=== PATIENT | female | born 1960 | race Caucasian/White ===

== ENCOUNTER 2018-04-03 12:40 | Inpatient (IN) | payer OTHER ==
[2018-04-03 15:04] VITALS: BMI 22.3
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
[2018-04-03] MEDS ORDERED: chlordiazePOXIDE HCL 25 MG CAPSULE PO PRN (15:50)
[2018-04-03] MEDS ORDERED: guaiFENesin/D-METHORPHAN HB 10 ML UNIT-DOSE CUPS PO PRN (15:50)
[2018-04-03] MEDS ORDERED: P-EPHED 60MG/TRIPROLIDI 2.5MG TABLET PO PRN (15:50)
[2018-04-03] MEDS ORDERED: MAG HYDROX/AL HYDROX/SIMETH 30 ML UNIT-DOSE CUP PO PRN (15:50)
[2018-04-03] MEDS ORDERED: MENTHOL/PHENOL 1 EACH UD MM PRN (15:50)
[2018-04-03] MEDS ORDERED: MAGNESIUM HYDROX 2400MG/30ML ORAL SUSPENSION 30 ML CUP PO PRN (15:50)
[2018-04-03] MEDS ORDERED: MAGNESIUM CITRATE 300 ML BOTTLE PO PRN (15:50)
[2018-04-03] MEDS: chlordiazePOXIDE HCL 25 MG CAPSULE PO SCH ×2 (19:00→22:20)
[2018-04-03] MEDS: ALBUTEROL SO4 8 GM HFA INHALER IH PRN (19:53)
[2018-04-03] MEDS: LOPERAMIDE HCL 2 MG CAPSULE PO PRN (19:54)
[2018-04-03] MEDS: THIAMINE HCL 100 MG TABLET (FP) PO SCH (22:20)
[2018-04-03] MEDS: MELATONIN 5 MG TABLETS PO PRN (22:21)
[2018-04-03] MEDS: ACETAMINOPHEN 325 MG TABLET (FP) PO PRN (22:23)
[2018-04-04] MEDS: IBUPROFEN 400 MG TABLET (FP) PO PRN ×3 (00:08→21:59)
[2018-04-04] MEDS: chlordiazePOXIDE HCL 25 MG CAPSULE PO SCH ×4 (05:37→22:00)
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
[2018-04-04] MEDS: RANITIDINE HCL 150 MG TABLET (FP) PO SCH (10:21)
[2018-04-04] MEDS: PRENATAL VITAMINS W/ FOLIC ACID TABLET (FP) PO SCH (10:21)
[2018-04-04] MEDS: amLODIPine BESYLATE 2.5 MG TABLET (FP) PO SCH (10:21)
[2018-04-04] MEDS: GABAPENTIN 300 MG CAPSULE (FP) PO SCH ×2 (10:22→21:59)
[2018-04-04] MEDS: SERTRALINE HCL 50 MG TABLET (FP) PO SCH (10:25)
[2018-04-04] MEDS: LOPERAMIDE HCL 2 MG CAPSULE PO PRN (10:34)
[2018-04-04 10:46] LABS: ALBUMIN 4.1 g/dl (3.4-5.0); ALK PHOS 83 U/L (45-117); ANION GAP 8 MMOL/L (8-16); BLOOD UREA NITROGEN 16 mg/dL (7-18); CALCIUM 9.2 mg/dL (8.5-10.1); CHLORIDE 105 mmol/L (98-107); CO2 29 mmol/L (21-32); CREATININE 0.7 mg/dL (0.55-1.3); GLUCOSE,RANDOM 118 mg/dL (74-106); POTASSIUM 3.4 mmol/L (3.5-5.1); SGOT/AST 41 U/L (15-37); SGPT/ALT 48 U/L (13-61); SODIUM 142 mmol/L (136-145); TOT PROT 7.9 g/dl (6.4-8.2)
[2018-04-04 10:47] LABS: HEMATOCRIT 38.8 % (32.4-45.2); HEMOGLOBIN 13.7 GM/dL (10.7-15.3); MCH 35.1 pg (25.7-33.7); MCHC 35.2 g/dl (32.0-36.0); MEAN CELL VOLUME 99.7 fl (80-96); MEAN PLT VOLUME 8.9 fl (7.5-11.1); PLATELET COUNT 181 K/MM3 (134-434); RBC 3.89 M/mm3 (3.60-5.2); WHITE BLOOD COUNT 5.5 K/mm3 (4.0-10.0)
[2018-04-04] MEDS: busPIRone HCL 5 MG TABLET PO SCH ×2 (10:55→21:59)
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
[2018-04-04] MEDS: hydrOXYzine PAMOATE 50 MG CAPSULE (FP) PO PRN ×2 (14:32→21:59)
[2018-04-04] MEDS ORDERED: SIMETHICONE 80 MG TAB.CHEW (FP) PO PRN (15:40)
[2018-04-04] MEDS: POTASSIUM CHLORIDE TABS 20 MEQ TABLET.ER (FP) PO SCH (17:06)
[2018-04-04] MEDS: ACETAMINOPHEN 325 MG TABLET (FP) PO PRN (19:31)
[2018-04-04] MEDS: ALBUTEROL SO4 8 GM HFA INHALER IH PRN (21:45)
[2018-04-04] MEDS: THIAMINE HCL 100 MG TABLET (FP) PO SCH (21:59)
[2018-04-04] MEDS: MELATONIN 5 MG TABLETS PO PRN (22:00)
[2018-04-04] MEDS: QUEtiapine FUMARATE 50 MG TABLET PO SCH (22:39)
[2018-04-05] MEDS: chlordiazePOXIDE HCL 25 MG CAPSULE PO SCH ×2 (05:30→10:45)
[2018-04-05] MEDS: RANITIDINE HCL 150 MG TABLET (FP) PO SCH (10:46)
[2018-04-05] MEDS: PRENATAL VITAMINS W/ FOLIC ACID TABLET (FP) PO SCH (10:46)
[2018-04-05] MEDS: SERTRALINE HCL 50 MG TABLET (FP) PO SCH (10:46)
[2018-04-05] MEDS: GABAPENTIN 300 MG CAPSULE (FP) PO SCH ×2 (10:46→22:48)
[2018-04-05] MEDS: POTASSIUM CHLORIDE TABS 20 MEQ TABLET.ER (FP) PO SCH (10:46)
[2018-04-05] MEDS: amLODIPine BESYLATE 2.5 MG TABLET (FP) PO SCH (10:46)
[2018-04-05] MEDS: busPIRone HCL 5 MG TABLET PO SCH ×2 (12:11→22:49)
[2018-04-05] MEDS: IBUPROFEN 400 MG TABLET (FP) PO PRN ×2 (13:24→20:19)
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
[2018-04-05] MEDS: chlordiazePOXIDE 5 MG CAPSULE PO SCH ×2 (17:14→22:48)
[2018-04-05] MEDS: QUEtiapine FUMARATE 50 MG TABLET PO SCH (22:48)
[2018-04-05] MEDS: THIAMINE HCL 100 MG TABLET (FP) PO SCH (22:49)
[2018-04-06] MEDS: chlordiazePOXIDE 5 MG CAPSULE PO SCH ×2 (05:17→10:23)
[2018-04-06] MEDS: IBUPROFEN 400 MG TABLET (FP) PO PRN ×2 (07:37→13:53)
[2018-04-06] MEDS: RANITIDINE HCL 150 MG TABLET (FP) PO SCH (10:23)
[2018-04-06] MEDS: amLODIPine BESYLATE 2.5 MG TABLET (FP) PO SCH (10:24)
[2018-04-06] MEDS: GABAPENTIN 300 MG CAPSULE (FP) PO SCH ×2 (10:24→22:11)
[2018-04-06] MEDS: busPIRone HCL 5 MG TABLET PO SCH ×2 (10:24→22:11)
[2018-04-06] MEDS: POTASSIUM CHLORIDE TABS 20 MEQ TABLET.ER (FP) PO SCH (10:24)
[2018-04-06] MEDS: PRENATAL VITAMINS W/ FOLIC ACID TABLET (FP) PO SCH (10:24)
[2018-04-06] MEDS: SERTRALINE HCL 50 MG TABLET (FP) PO SCH (10:25)
[2018-04-06] MEDS: chlordiazePOXIDE HCL 10 MG CAPSULE PO SCH ×2 (17:18→22:11)
--- NOTE | 2018-04-06 17:53 | PN ---
[facility] Progress Note (SOAP) Subjective: Sweating, chills, body aches. Patient requesting Rehab here at [facility]. Objective: 04/06/18 17:50 Last Vital Signs Temp Pulse Resp BP Pulse Ox 99.0 F 77 16 135/91 04/06/18 17:41 04/06/18 17:41 04/06/18 17:41 04/06/18 17:41 Laboratory Tests 04/04/18 04/04/18 04/04/18 07:00 07:00 07:00 WBC 5.5 RBC 3.89 Hgb 13.7 Hct 38.8 MCV 99.7 H MCH 35.1 H MCHC 35.2 RDW 13.0 Plt Count 181 MPV 8.9 Sodium 142 Potassium 3.4 L Chloride 105 Carbon Dioxide 29 Anion Gap 8 BUN 16 Creatinine 0.7 Creat Clearance w eGFR > 60 Random Glucose 118 H Calcium 9.2 Total Bilirubin 1.0 AST 41 H ALT 48 Alkaline Phosphatase 83 Total Protein 7.9 Albumin 4.1 RPR Titer Nonreactive HIV 1&2 Antibody Screen HIV P24 Antigen 04/04/18 07:00 WBC RBC Hgb Hct MCV MCH MCHC RDW Plt Count MPV Sodium Potassium Chloride Carbon Dioxide Anion Gap BUN Creatinine Creat Clearance w eGFR Random Glucose Calcium Total Bilirubin AST ALT Alkaline Phosphatase Total Protein Albumin RPR Titer HIV 1&2 Antibody Screen Negative HIV P24 Antigen Negative Labs reviewed: Karri 3.4 Assessment: 04/06/18 17:51 Withdrawal symptoms Mild hypokalemia noted Plan: Continue detox Encouraged PO water hydration Hypokalemia, mild: replenished
[2018-04-06] MEDS: MELATONIN 5 MG TABLETS PO PRN (22:11)
[2018-04-06] MEDS: THIAMINE HCL 100 MG TABLET (FP) PO SCH (22:11)
[2018-04-06] MEDS: QUEtiapine FUMARATE 50 MG TABLET PO SCH (22:11)
[2018-04-07] MEDS: chlordiazePOXIDE HCL 10 MG CAPSULE PO SCH ×2 (05:12→10:16)
[2018-04-07 09:32] VITALS: BP 115/73; PULSE 77; TEMP 97.5
[2018-04-07] MEDS: IBUPROFEN 400 MG TABLET (FP) PO PRN (09:39)
[2018-04-07] MEDS: amLODIPine BESYLATE 2.5 MG TABLET (FP) PO SCH (09:39)
[2018-04-07] MEDS: busPIRone HCL 5 MG TABLET PO SCH (09:39)
[2018-04-07] MEDS: PRENATAL VITAMINS W/ FOLIC ACID TABLET (FP) PO SCH (09:39)
--- NOTE | 2018-04-07 09:46 | DS ---
[facility] Detox Discharge Summary Admission Date: 04/03/18 Discharge Date: 04/07/18 - History Present History: Alcohol Dependence, Opioid Dependence - Physical Exam Results Vital Signs: Vital Signs Temperature 97.5 F L 04/07/18 09:32 Pulse Rate 77 04/07/18 09:32 Respiratory Rate 18 04/07/18 09:32 Blood Pressure 115/73 04/07/18 09:32 O2 Sat by Pulse Oximetry (%) - Treatment Hospital Course: Detox Protocol Followed, Detoxed Safely, Responded well, Discharged Condition Good, Rehab Referral Accepted - Medication Discharge Medications: Ambulatory Orders Albuterol Sulfate Inhaler - [Ventolin Hfa Inhaler -] 2 inh PO Q4H PRN 04/03/18 Amlodipine Besylate [Norvasc -] 2.5 mg PO DAILY 04/03/18 Gabapentin [Neurontin -] 300 mg PO HS 04/03/18 Quetiapine Fumarate [Seroquel -] 50 - 100 mg PO HS 04/03/18 Ranitidine HCl 150 mg PO BID 04/03/18 Sertraline HCl [Zoloft] 100 mg PO DAILY 04/03/18 - Diagnosis (1) Alcohol intoxication Current Visit: Yes Status: Acute Qualifiers: Complication of substance-induced condition: uncomplicated Qualified Code(s ): F10.920 - Alcohol use, unspecified with intoxication, uncomplicated (2) Hypokalemia Current Visit: Yes Status: Acute (3) Alcohol dependence Current Visit: Yes Status: Chronic Qualifiers: Substance use status: uncomplicated Qualified Code(s): F10.20 - Alcohol dependence, uncomplicated (4) Asthma Current Visit: Yes Status: Chronic Qualifiers: Asthma severity: mild Asthma persistence: unspecified Asthma complication type: unspecified Qualified Code(s): J45.909 - Unspecified asthma , uncomplicated (5) Cocaine dependence Current Visit: Yes Status: Chronic Qualifiers: Substance use status: uncomplicated Qualified Code(s): F14.20 - Cocaine dependence, uncomplicated (6) Hypertension Current Visit: Yes Status: Chronic Qualifiers: Hypertension type: essential hypertension Qualified Code(s): I10 - Essential (primary) hypertension (7) Nicotine dependence in remission Current Visit: Yes Status: Chronic Qualifiers: Nicotine product type: cigarettes Qualified Code(s): F17.211 - Nicotine dependence, cigarettes, in remission (8) Opiate dependence Current Visit: Yes Status: Chronic Qualifiers: Substance use status: in remission Qualified Code(s): F11.21 - Opioid dependence, in remission (9) Substance induced mood disorder Current Visit: Yes Status: Chronic - AMA Did Patient Leave Against Medical Advice: No (referred to [facility])
[2018-04-07] MEDS: RANITIDINE HCL 150 MG TABLET (FP) PO SCH (10:16)
[2018-04-07] MEDS: POTASSIUM CHLORIDE TABS 20 MEQ TABLET.ER (FP) PO SCH (10:16)
[2018-04-07] MEDS: GABAPENTIN 300 MG CAPSULE (FP) PO SCH (10:16)
[2018-04-07] MEDS: SERTRALINE HCL 50 MG TABLET (FP) PO SCH (10:17)
== END 2018-04-07 12:29 | disposition other institution (70) | DRG 773 ==
LOC: YASAS 12:40 → Y6N 17:24
PROVIDERS: ADMIT Neuromusculoskeletal Medicine & OMM; ATTEND Neuromusculoskeletal Medicine & OMM
PROC: HZ2ZZZZ Detoxification Services for Substance Abuse Treatment (ICD-10-PCS; principal; 2018-04-03)
DX: F10.230 Alcohol dependence with withdrawal, uncomplicated (principal); F14.20 Cocaine dependence, uncomplicated; F11.20 Opioid dependence, uncomplicated; F17.210 Nicotine dependence, cigarettes, uncomplicated; I10 Essential (primary) hypertension; J45.909 Unspecified asthma, uncomplicated; E87.6 Hypokalemia
CPT/HCPCS: 36415; 73060-TC-LT-FY; 73060-TC-RT-FY; 73110-TC-LR-FY; 73110-TC-RT-FY; 73130-TC-LT-FY; 73130-TC-RT-FY; 80053; 85027; 86593; 87389

== ENCOUNTER 2018-04-07 12:50 | Inpatient (IN) | payer OTHER ==
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
[2018-04-07] MEDS ORDERED: LOPERAMIDE HCL 2 MG CAPSULE PO PRN (15:18)
[2018-04-07] MEDS ORDERED: ACETAMINOPHEN 325 MG TABLET (FP) PO PRN (15:18)
[2018-04-07] MEDS ORDERED: P-EPHED 60MG/TRIPROLIDI 2.5MG TABLET PO PRN (15:18)
[2018-04-07] MEDS ORDERED: MENTHOL/PHENOL 1 EACH UD MM PRN (15:18)
[2018-04-07] MEDS ORDERED: MAGNESIUM CITRATE 300 ML BOTTLE PO PRN (15:18)
[2018-04-07] MEDS ORDERED: MAGNESIUM HYDROX 2400MG/30ML ORAL SUSPENSION 30 ML CUP PO PRN (15:18)
[2018-04-07] MEDS ORDERED: NICOTINE POLACRILEX 4 MG GUM BUC PRN (15:18)
[2018-04-07] MEDS ORDERED: guaiFENesin/D-METHORPHAN HB 10 ML UNIT-DOSE CUPS PO PRN (15:18)
--- NOTE | 2018-04-07 15:18 | HP ---
[facility] Rehab Assess/Revision - Admission History Admitted to Rehab from: [facility] - Vital signs Vital Signs: Vital Signs Period Temp Pulse Resp BP Sys/Pagan Pulse Ox Last 24 Hr 97.7 F 83 18 119/78 - Findings Detox History & Physical reviewed: Yes Concur with findings: Yes Inpatient Rehab Admission - Initial Determination Are CD services needed?: Yes - Rehab Admission Criteria Poor recovery environment: Yes Comorbidities: Yes Patient is meeting Inpatient Rehab admission criteria:: Yes
[2018-04-07] MEDS: IBUPROFEN 400 MG TABLET (FP) PO PRN (18:14)
[2018-04-07] MEDS: hydrOXYzine PAMOATE 50 MG CAPSULE (FP) PO PRN (21:06)
[2018-04-07] MEDS: THIAMINE HCL 100 MG TABLET (FP) PO SCH (21:06)
[2018-04-07] MEDS: GABAPENTIN 300 MG CAPSULE (FP) PO SCH (21:08)
[2018-04-07] MEDS: traZODone HCL 100 MG TABLET (FP) PO SCH (21:08)
[2018-04-07] MEDS: MELATONIN 5 MG TABLETS PO PRN (23:48)
[2018-04-08] MEDS: SERTRALINE HCL 50 MG TABLET (FP) PO SCH (09:18)
[2018-04-08] MEDS: GABAPENTIN 300 MG CAPSULE (FP) PO SCH ×2 (09:18→21:27)
[2018-04-08] MEDS: PRENATAL VITAMINS W/ FOLIC ACID TABLET (FP) PO SCH (09:18)
[2018-04-08] MEDS: NICOTINE 21 MG/24 HOURS TOPICAL PATCH TD SCH (09:19)
[2018-04-08] MEDS ORDERED: PT OWN MED DRAWER 7, Y5N ONE (10:19)
[2018-04-08] MEDS ORDERED: PNEUMOC 13-VAL CONJ-DIP CRM/PF 0.5 ML DISP.SYRIN IM ONE (12:00)
[2018-04-08] MEDS ORDERED: PNEUMOCOCCAL 23 VACCINE 0.5 ML VIAL IM ONE (12:00)
[2018-04-08] MEDS: IBUPROFEN 400 MG TABLET (FP) PO PRN (16:44)
[2018-04-08] MEDS: hydrOXYzine PAMOATE 50 MG CAPSULE (FP) PO PRN (21:27)
[2018-04-08] MEDS: MELATONIN 5 MG TABLETS PO PRN (21:27)
[2018-04-08] MEDS: traZODone HCL 100 MG TABLET (FP) PO SCH (21:27)
[2018-04-08] MEDS: THIAMINE HCL 100 MG TABLET (FP) PO SCH (21:27)
[2018-04-08 23:52] LABS: URINE APPEARANCE SLCLOUDY; URINE BILIRUBIN NEGATIVE (<2.0 mg/dL); URINE COLOR LTYELLOW; URINE GLUCOSE (UA) NEGATIVE (NEGATIVE); URINE KETONE NEGATIVE (NEGATIVE); URINE LEUK ESTERASE TRACE (NEGATIVE); URINE NITRITE NEGATIVE (NEGATIVE); URINE PROTEIN NEGATIVE (NEGATIVE); URINE UROBILINOGEN NEGATIVE mg/dL (0.2-1.0)
[2018-04-09 00:33] LABS: EPI CELLS RARE /HPF (FEW)
[2018-04-09] MEDS ORDERED: COLLOIDAL OATMEAL 1 BAR EACH TP PRN (09:45)
[2018-04-09] MEDS: IBUPROFEN 400 MG TABLET (FP) PO PRN ×2 (09:50→21:20)
[2018-04-09] MEDS: GABAPENTIN 300 MG CAPSULE (FP) PO SCH ×2 (09:51→21:18)
[2018-04-09] MEDS: SERTRALINE HCL 50 MG TABLET (FP) PO SCH (09:51)
[2018-04-09] MEDS: PRENATAL VITAMINS W/ FOLIC ACID TABLET (FP) PO SCH (09:51)
[2018-04-09] MEDS: MAG HYDROX/AL HYDROX/SIMETH 30 ML UNIT-DOSE CUP PO PRN ×2 (09:56→19:56)
[2018-04-09] MEDS: NICOTINE 21 MG/24 HOURS TOPICAL PATCH TD SCH (10:05)
[2018-04-09] MEDS: BACITRACIN 0.9 GM PACKET TP SCH ×2 (11:00→21:20)
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
[2018-04-09] MEDS: hydrOXYzine PAMOATE 50 MG CAPSULE (FP) PO PRN (21:18)
[2018-04-09] MEDS: traZODone HCL 100 MG TABLET (FP) PO SCH (21:18)
[2018-04-09] MEDS: THIAMINE HCL 100 MG TABLET (FP) PO SCH (21:18)
[2018-04-10] MEDS: MELATONIN 5 MG TABLETS PO PRN ×2 (00:38→21:24)
[2018-04-10] MEDS: BACITRACIN 0.9 GM PACKET TP SCH ×2 (09:46→21:25)
[2018-04-10] MEDS: GABAPENTIN 300 MG CAPSULE (FP) PO SCH ×2 (09:47→21:24)
[2018-04-10] MEDS: NICOTINE 21 MG/24 HOURS TOPICAL PATCH TD SCH (09:47)
[2018-04-10] MEDS: SERTRALINE HCL 50 MG TABLET (FP) PO SCH (09:47)
[2018-04-10] MEDS: PRENATAL VITAMINS W/ FOLIC ACID TABLET (FP) PO SCH (09:47)
[2018-04-10] MEDS: MAG HYDROX/AL HYDROX/SIMETH 30 ML UNIT-DOSE CUP PO PRN (10:50)
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
[2018-04-10] MEDS: BISMUTH SUBSALICYLATE 262 MG/15 ML BTL PO SCH (15:36)
[2018-04-10] MEDS: traZODone HCL 100 MG TABLET (FP) PO SCH (21:24)
[2018-04-10] MEDS: THIAMINE HCL 100 MG TABLET (FP) PO SCH (21:24)
[2018-04-10] MEDS: hydrOXYzine PAMOATE 50 MG CAPSULE (FP) PO PRN (21:24)
[2018-04-10] MEDS ORDERED: PT OWN MED DRAWER 7, Y5N ONE (21:55)
[2018-04-11] MEDS: BACITRACIN 0.9 GM PACKET TP SCH ×3 (10:18→21:24)
[2018-04-11] MEDS: GABAPENTIN 300 MG CAPSULE (FP) PO SCH ×2 (10:18→21:20)
[2018-04-11] MEDS: SERTRALINE HCL 50 MG TABLET (FP) PO SCH (10:18)
[2018-04-11] MEDS: PRENATAL VITAMINS W/ FOLIC ACID TABLET (FP) PO SCH (10:18)
[2018-04-11] MEDS: BISMUTH SUBSALICYLATE 262 MG/15 ML BTL PO SCH (10:20)
--- NOTE | 2018-04-11 12:41 | PN ---
S Progress Note Note: PATIENT'S SCALP INSPECTED BY ARCHITECTURAL INSPECTOR WITH COMB TO ASSESS FOR ANY OTHER J CARLOS. NO J CARLOS NOTED ON SCALP. SCALP REMAINS INTACT, NO REDNESS OR SWELLING NOTED. PATIENT DENIES ANY PAIN TO SCALP AREA/HEAD. WILL CONTINUE TO MONITOR CLINICALLY. Vital Signs Temperature 97.8 F 04/11/18 07:45 Pulse Rate 74 04/11/18 07:45 Respiratory Rate 16 04/11/18 07:45 Blood Pressure 135/92 04/11/18 07:45 O2 Sat by Pulse Oximetry (%)
[2018-04-11] MEDS: THIAMINE HCL 100 MG TABLET (FP) PO SCH (21:20)
[2018-04-11] MEDS: traZODone HCL 100 MG TABLET (FP) PO SCH (21:20)
[2018-04-11] MEDS: IBUPROFEN 400 MG TABLET (FP) PO PRN (21:23)
[2018-04-12] MEDS: PRENATAL VITAMINS W/ FOLIC ACID TABLET (FP) PO SCH (10:17)
[2018-04-12] MEDS: GABAPENTIN 300 MG CAPSULE (FP) PO SCH ×2 (10:17→21:57)
[2018-04-12] MEDS: SERTRALINE HCL 50 MG TABLET (FP) PO SCH (10:17)
[2018-04-12] MEDS: BACITRACIN 0.9 GM PACKET TP SCH ×3 (10:17→21:45)
[2018-04-12] MEDS: BISMUTH SUBSALICYLATE 262 MG/15 ML BTL PO SCH (10:19)
[2018-04-12] MEDS ORDERED: PT OWN MED DRAWER 7, Y5N ONE (10:20)
--- NOTE | 2018-04-12 13:44 | PN ---
[facility] Progress Note Note: itching both feet tinea pedis treatment tinactin cream 1% bid
[2018-04-12] MEDS: TOLNAFTATE 1% CREAM 15 GM TUBE TP SCH ×2 (14:55→21:57)
[2018-04-12] MEDS: THIAMINE HCL 100 MG TABLET (FP) PO SCH (21:56)
[2018-04-12] MEDS: traZODone HCL 100 MG TABLET (FP) PO SCH (21:56)
[2018-04-12] MEDS: hydrOXYzine PAMOATE 50 MG CAPSULE (FP) PO PRN (21:57)
[2018-04-12] MEDS: MELATONIN 5 MG TABLETS PO PRN (23:37)
[2018-04-13] MEDS: BISMUTH SUBSALICYLATE 262 MG/15 ML BTL PO SCH (09:59)
[2018-04-13] MEDS: TOLNAFTATE 1% CREAM 15 GM TUBE TP SCH ×2 (10:00→21:51)
[2018-04-13] MEDS: SERTRALINE HCL 50 MG TABLET (FP) PO SCH (10:00)
[2018-04-13] MEDS: BACITRACIN 0.9 GM PACKET TP SCH ×3 (10:00→21:51)
[2018-04-13] MEDS: PRENATAL VITAMINS W/ FOLIC ACID TABLET (FP) PO SCH (10:00)
[2018-04-13] MEDS: GABAPENTIN 300 MG CAPSULE (FP) PO SCH ×2 (10:00→21:50)
[2018-04-13] MEDS: THIAMINE HCL 100 MG TABLET (FP) PO SCH (21:49)
[2018-04-13] MEDS: traZODone HCL 100 MG TABLET (FP) PO SCH (21:50)
[2018-04-13] MEDS: hydrOXYzine PAMOATE 50 MG CAPSULE (FP) PO PRN (23:40)
[2018-04-13] MEDS: MELATONIN 5 MG TABLETS PO PRN (23:40)
[2018-04-14] MEDS ORDERED: PT OWN MED DRAWER 7, Y5N ONE (09:01)
[2018-04-14] MEDS: PRENATAL VITAMINS W/ FOLIC ACID TABLET (FP) PO SCH (10:09)
[2018-04-14] MEDS: GABAPENTIN 300 MG CAPSULE (FP) PO SCH ×2 (10:09→21:54)
[2018-04-14] MEDS: SERTRALINE HCL 50 MG TABLET (FP) PO SCH (10:09)
[2018-04-14] MEDS: BACITRACIN 0.9 GM PACKET TP SCH (10:09)
[2018-04-14] MEDS: BISMUTH SUBSALICYLATE 262 MG/15 ML BTL PO SCH (10:12)
[2018-04-14] MEDS: TOLNAFTATE 1% CREAM 15 GM TUBE TP SCH ×2 (10:13→21:54)
[2018-04-14] MEDS: amLODIPine BESYLATE 2.5 MG TABLET (FP) PO SCH (10:19)
--- NOTE | 2018-04-14 13:50 | PN ---
Psychiatric Progress Note Vital Signs: Vital Signs Period Temp Pulse Resp BP Sys/Pagan Pulse Ox Last 24 Hr 97.9 F 78-93 16-18 118-130/81-88 Date of Session: 04/14/18 Chief Complaint:: Ernesto nervious and i I am having sleeping difficulties. HPI: patient addressed Alcohol,Opioid and Cocaine dependence comorbid with Substance induced mood disorder. ROS: Significant for BA. Current Medications: Active Medications Generic Name Dose Route Start Last Admin Trade Name Freq PRN Reason Stop Dose Admin Acetaminophen 650 mg 04/07/18 15:18 Tylenol - PO Q4H PRN FEVER Al Hydroxide/Mg Hydroxide 30 ml 04/07/18 15:18 04/10/18 10:50 Mylanta Oral Suspension - PO 30 ml Q6H PRN Administration DYSPEPSIA Amlodipine Besylate 2.5 mg 04/14/18 10:00 04/14/18 10:19 Norvasc - PO 2.5 mg DAILY ALEXIS Administration Bacitracin 0.9 gm 04/11/18 10:00 04/14/18 10:09 Bacitracin - TP 0.9 gm DAILY ALEXIS Administration Bismuth Subsalicylate 30 ml 04/10/18 14:45 04/14/18 10:12 Pepto-Bismol Liquid - PO Not Given DAILY ALEXIS Colloidal Oatmeal 1 applic 04/09/18 09:45 04/09/18 15:58 Aveeno Soap - TP 1 bar DAILY PRN Administration HYGEINE Eucalyptus/Menthol/Phenol/Sorbitol 1 each 04/07/18 15:18 Cepastat Lozenge - MM Q4H PRN SORE THROAT Gabapentin 300 mg 04/07/18 22:00 04/14/18 10:09 Neurontin - PO 300 mg BID ALEXIS Administration Guaifenesin 10 ml 04/07/18 15:18 Robitussin Dm - PO Q6H PRN COUGH Hydroxyzine Pamoate 50 mg 04/07/18 14:57 04/13/18 23:40 Vistaril - PO 50 mg Q4H PRN Administration ANXIETY Ibuprofen 400 mg 04/07/18 15:18 04/11/18 21:23 Motrin - PO 400 mg Q6H PRN Administration Pain Level 4-6 Loperamide HCl 4 mg 04/07/18 15:18 Imodium - PO Q6H PRN DIARRHEA Magnesium Citrate 300 ml 04/07/18 15:18 Citroma - PO Q48H PRN CONSTIPATION Magnesium Hydroxide 30 ml 04/07/18 15:18 Milk Of Magnesia - PO DAILY PRN CONSTIPATION Melatonin 5 mg 04/07/18 22:00 04/13/18 23:40 Melatonin PO 5 mg HS PRN Administration INSOMNIA Multivit/Folic Acid/Iron 1 tab 04/08/18 10:00 04/14/18 10:09 Vitamins (Sjr) - PO 1 tab DAILY ALEXIS Administration Pseudoephedrine/Triprolidine 1 combo 04/07/18 15:18 Actifed - PO TID PRN NASAL CONGESTION Sertraline HCl 100 mg 04/08/18 10:00 04/14/18 10:09 Zoloft - PO 100 mg DAILY ALEXIS Administration Thiamine HCl 100 mg 04/07/18 22:00 04/13/18 21:49 Vitamin B1 - PO 100 mg HS ALEXIS Administration Tolnaftate 1 applic 04/12/18 13:45 04/14/18 10:13 Tinactin 1% Cream - TP Not Given BID ALEXIS Trazodone HCl 100 mg 04/07/18 22:00 04/13/18 21:50 Desyrel - PO 100 mg HS ALEXIS Administration Current Side Effect: No Lab tests ordered: No Lab tests reviewed: Yes Provider note:: Chart was revuewed,patient was seen in my office,medications and treatment plan has been discussed with the patient .Properties of Naltrexone has been discussed with the patient including side side effects, benefits and dose adjustment has been discussed with the patient .Naltrexone 50 mg po daily will be started today.Trazodone 100 mg po hs will be adjusted to 150 mg po hs.Continue Zoloft 100 mg po daily and Neurontin 300 mg po bid. Supportive therapy provided. Mental Status Exam - Mental Status Exam Alert and Oriented to: Time, Place, Person Cognitive Function: Grossly Intact Patient Appearance: Well Groomed Mood: Nervous, Anxious, Apprehensive, Irritable Affect: Mood Congruent, Labile Patient Behavior: Cooperative Speech Pattern: Clear Voice Loudness: Normal Thought Process: Goal Oriented Thought Disorder: Not Present Hallucinations: Denies Suicidal Ideation: Denies Homicidal Ideation: Denies Insight/Judgement: Fair Sleep: Difficulty falling asleep Appetite: Good Muscle strength/Tone: Normal Gait/Station: Normal Psychiatric Treatment Plan - Problem List (1) Alcohol dependence Current Visit: Yes Qualifiers: Substance use status: uncomplicated Qualified Code(s): F10.20 - Alcohol dependence, uncomplicated (2) Asthma Current Visit: Yes Qualifiers: Asthma severity: mild Asthma persistence: unspecified Asthma complication type: unspecified Qualified Code(s): J45.909 - Unspecified asthma , uncomplicated (3) Cocaine dependence Current Visit: Yes Qualifiers: Substance use status: uncomplicated Qualified Code(s): F14.20 - Cocaine dependence, uncomplicated (4) Hypertension Current Visit: Yes Qualifiers: Hypertension type: essential hypertension Qualified Code(s): I10 - Essential (primary) hypertension (5) Nicotine dependence in remission Current Visit: Yes Qualifiers: Nicotine product type: cigarettes Qualified Code(s): F17.211 - Nicotine dependence, cigarettes, in remission (6) Opiate dependence Current Visit: Yes Qualifiers: Substance use status: in remission Qualified Code(s): F11.21 - Opioid dependence, in remission (7) Substance induced mood disorder Current Visit: Yes
[2018-04-14] MEDS ORDERED: SIMETHICONE 40 MG/0.6 ML BOTTLE PO PRN (13:53)
[2018-04-14] MEDS: hydrOXYzine PAMOATE 50 MG CAPSULE (FP) PO PRN (21:54)
[2018-04-14] MEDS: THIAMINE HCL 100 MG TABLET (FP) PO SCH (21:55)
[2018-04-14] MEDS: MAG HYDROX/AL HYDROX/SIMETH 30 ML UNIT-DOSE CUP PO PRN (21:56)
[2018-04-14] MEDS: traZODone HCL 50 MG TABLET (FP) PO SCH (21:56)
[2018-04-15] MEDS ORDERED: PT OWN MED DRAWER 7, Y5N ONE (08:58)
[2018-04-15] MEDS: GABAPENTIN 300 MG CAPSULE (FP) PO SCH ×2 (10:33→22:35)
[2018-04-15] MEDS: SERTRALINE HCL 50 MG TABLET (FP) PO SCH (10:33)
[2018-04-15] MEDS: amLODIPine BESYLATE 2.5 MG TABLET (FP) PO SCH (10:33)
[2018-04-15] MEDS: BACITRACIN 0.9 GM PACKET TP SCH (10:33)
[2018-04-15] MEDS: PRENATAL VITAMINS W/ FOLIC ACID TABLET (FP) PO SCH (10:33)
[2018-04-15] MEDS: TOLNAFTATE 1% CREAM 15 GM TUBE TP SCH ×2 (10:36→22:37)
[2018-04-15] MEDS: hydrOXYzine PAMOATE 50 MG CAPSULE (FP) PO PRN ×2 (14:01→23:29)
[2018-04-15] MEDS: THIAMINE HCL 100 MG TABLET (FP) PO SCH (22:35)
[2018-04-15] MEDS: traZODone HCL 50 MG TABLET (FP) PO SCH (22:35)
[2018-04-15] MEDS: MELATONIN 5 MG TABLETS PO PRN (23:28)
[2018-04-16] MEDS: BACITRACIN 0.9 GM PACKET TP SCH (10:08)
[2018-04-16] MEDS: amLODIPine BESYLATE 2.5 MG TABLET (FP) PO SCH (10:09)
[2018-04-16] MEDS: GABAPENTIN 300 MG CAPSULE (FP) PO SCH ×3 (10:09→22:53)
[2018-04-16] MEDS: TOLNAFTATE 1% CREAM 15 GM TUBE TP SCH ×2 (10:09→22:54)
[2018-04-16] MEDS: PRENATAL VITAMINS W/ FOLIC ACID TABLET (FP) PO SCH (10:09)
[2018-04-16] MEDS: SERTRALINE HCL 50 MG TABLET (FP) PO SCH (10:09)
--- NOTE | 2018-04-16 10:53 | PN ---
Psychiatric Progress Note Vital Signs: Vital Signs Period Temp Pulse Resp BP Sys/Pagan Pulse Ox Last 24 Hr 98.0 F 87 18-18 133/79 Date of Session: 04/16/18 Chief Complaint:: Ernesto still insomnic,Ernesto up all night long. HPI: patient adressed alcohol,cocaine and opiate dependence comorbid with Substance induced mood disorder. ROS: Significant for BA,HTN. Current Medications: Active Medications Generic Name Dose Route Start Last Admin Trade Name Freq PRN Reason Stop Dose Admin Acetaminophen 650 mg 04/07/18 15:18 Tylenol - PO Q4H PRN FEVER Al Hydroxide/Mg Hydroxide 30 ml 04/07/18 15:18 04/14/18 21:56 Mylanta Oral Suspension - PO 30 ml Q6H PRN Administration DYSPEPSIA Amlodipine Besylate 2.5 mg 04/14/18 10:00 04/16/18 10:09 Norvasc - PO 2.5 mg DAILY ALEXIS Administration Bacitracin 0.9 gm 04/11/18 10:00 04/16/18 10:08 Bacitracin - TP 0.9 gm DAILY ALEXIS Administration Colloidal Oatmeal 1 applic 04/09/18 09:45 04/09/18 15:58 Aveeno Soap - TP 1 bar DAILY PRN Administration HYGEINE Eucalyptus/Menthol/Phenol/Sorbitol 1 each 04/07/18 15:18 Cepastat Lozenge - MM Q4H PRN SORE THROAT Gabapentin 300 mg 04/16/18 14:00 Neurontin - PO TID ALEXIS Guaifenesin 10 ml 04/07/18 15:18 Robitussin Dm - PO Q6H PRN COUGH Hydroxyzine Pamoate 50 mg 04/07/18 14:57 04/15/18 23:29 Vistaril - PO 50 mg Q4H PRN Administration ANXIETY Ibuprofen 400 mg 04/07/18 15:18 04/11/18 21:23 Motrin - PO 400 mg Q6H PRN Administration Pain Level 4-6 Loperamide HCl 4 mg 04/07/18 15:18 Imodium - PO Q6H PRN DIARRHEA Magnesium Citrate 300 ml 04/07/18 15:18 Citroma - PO Q48H PRN CONSTIPATION Magnesium Hydroxide 30 ml 04/07/18 15:18 Milk Of Magnesia - PO DAILY PRN CONSTIPATION Melatonin 10 mg 04/14/18 13:53 04/15/18 23:28 Melatonin PO 10 mg HS PRN Administration INSOMNIA Multivit/Folic Acid/Iron 1 tab 04/08/18 10:00 04/16/18 10:09 Vitamins (Sjr) - PO 1 tab DAILY ALEXIS Administration Pseudoephedrine/Triprolidine 1 combo 04/07/18 15:18 Actifed - PO TID PRN NASAL CONGESTION Sertraline HCl 100 mg 04/08/18 10:00 04/16/18 10:09 Zoloft - PO 100 mg DAILY ALEXIS Administration Simethicone 40 mg 04/14/18 13:53 Mylicon Liquid - PO QID PRN INDIGESTION Suvorexant 10 mg 04/16/18 22:00 Belsomra PO HS ALEXIS Thiamine HCl 100 mg 04/07/18 22:00 04/15/18 22:35 Vitamin B1 - PO 100 mg HS ALEXIS Administration Tolnaftate 1 applic 04/12/18 13:45 04/16/18 10:09 Tinactin 1% Cream - TP 1 applic BID ALEXIS Administration Trazodone HCl 150 mg 04/14/18 22:00 04/15/18 22:35 Desyrel - PO 150 mg HS ALEXIS Administration Current Side Effect: No Lab tests ordered: No Lab tests reviewed: Yes Provider note:: properties of Neurontin and Belsomra has been discussed with the patient including side effects,benefits and dose adjusrments.Will start Belsomra 10 mg po hs prn for insomnia.Neurontin 100 mg Total face to face time:: 25 Mental Status Exam - Mental Status Exam Alert and Oriented to: Time, Place, Person Cognitive Function: Grossly Intact Patient Appearance: Well Groomed Mood: Nervous, Anxious, Irritable Affect: Mood Congruent, Labile Patient Behavior: Cooperative Speech Pattern: Clear Voice Loudness: Normal Thought Process: Goal Oriented Thought Disorder: Not Present Hallucinations: Denies Suicidal Ideation: Denies Homicidal Ideation: Denies Insight/Judgement: Fair Sleep: Difficulty falling asleep Appetite: Good Muscle strength/Tone: Normal Gait/Station: Normal Psychiatric Treatment Plan - Problem List (1) Alcohol dependence Qualifiers: Substance use status: uncomplicated Qualified Code(s): F10.20 - Alcohol dependence, uncomplicated (2) Asthma Qualifiers: Asthma severity: mild Asthma persistence: unspecified Asthma complication type: unspecified Qualified Code(s): J45.909 - Unspecified asthma , uncomplicated (3) Cocaine dependence Qualifiers: Substance use status: uncomplicated Qualified Code(s): F14.20 - Cocaine dependence, uncomplicated (4) Hypertension Qualifiers: Hypertension type: essential hypertension Qualified Code(s): I10 - Essential (primary) hypertension (5) Nicotine dependence in remission Qualifiers: Nicotine product type: cigarettes Qualified Code(s): F17.211 - Nicotine dependence, cigarettes, in remission (6) Opiate dependence Qualifiers: Substance use status: in remission Qualified Code(s): F11.21 - Opioid dependence, in remission
[2018-04-16] MEDS ORDERED: cloNIDine HCL 0.1 MG TABLET PO PRN (14:47)
--- NOTE | 2018-04-16 14:52 | PN ---
[facility] Progress Note Note: PATIENT C/O ANXIETY AND INSOMNIA. PATIENT STATES SHE HAS NOT SLEPT FOR MORE THAN 2 HOURS FOR THE LAST 3 DAYS. PATIENT DENIES HEADACHE AND DIZZINESS. Vital Signs Temperature 98.0 F 04/16/18 08:35 Pulse Rate 90 04/16/18 09:00 Respiratory Rate 18 04/16/18 08:35 Blood Pressure 113/25 L 04/16/18 09:00 O2 Sat by Pulse Oximetry (%) Laboratory Tests 04/08/18 04/09/18 16:21 12:20 Potassium 4.0 Urine Color Ltyellow Urine Appearance Slcloudy Urine pH 7.0 Ur Specific [place] 1.014 Urine Protein Negative Urine Glucose (UA) Negative Urine Ketones Negative Urine Blood Negative Urine Nitrite Negative Urine Bilirubin Negative Urine Urobilinogen Negative Ur Leukocyte Esterase Trace Urine WBC (Auto) 4 Urine RBC (Auto) <1 Ur Epithelial Cells Rare PE: ALERT AND ORIENTED X 3 SKIN WARM AND DRY +PERRLA, EOMS INTACT BL EXT FULL ROM, NO EDEMA +ANXIETY/RESTLESSNESS A/P: ANXIETY INSOMNIA WILL ADD CLONIDINE 0.1 MG BID PRN FOR ANXIETY BELSOMRA 10MG IN PROGRESS FOR INSOMNIA CONTINUE TO MONITOR CLINICALLY
[2018-04-16] MEDS: traZODone HCL 50 MG TABLET (FP) PO SCH (22:53)
[2018-04-16] MEDS: hydrOXYzine PAMOATE 50 MG CAPSULE (FP) PO PRN (22:53)
[2018-04-16] MEDS: THIAMINE HCL 100 MG TABLET (FP) PO SCH (22:53)
[2018-04-16] MEDS: SUVOREXANT 10 MG TABLET PO SCH (22:53)
[2018-04-17] MEDS: GABAPENTIN 300 MG CAPSULE (FP) PO SCH ×3 (06:32→22:53)
[2018-04-17] MEDS: PRENATAL VITAMINS W/ FOLIC ACID TABLET (FP) PO SCH (10:07)
[2018-04-17] MEDS: BACITRACIN 0.9 GM PACKET TP SCH (10:07)
[2018-04-17] MEDS: SERTRALINE HCL 50 MG TABLET (FP) PO SCH (10:07)
[2018-04-17] MEDS: amLODIPine BESYLATE 2.5 MG TABLET (FP) PO SCH (10:07)
[2018-04-17] MEDS: TOLNAFTATE 1% CREAM 15 GM TUBE TP SCH ×2 (10:09→22:55)
[2018-04-17] MEDS: hydrOXYzine PAMOATE 50 MG CAPSULE (FP) PO PRN (10:09)
[2018-04-17] MEDS ORDERED: PT OWN MED DRAWER 7, Y5N ONE (13:28)
[2018-04-17] MEDS: SUVOREXANT 10 MG TABLET PO SCH (22:53)
[2018-04-17] MEDS: traZODone HCL 50 MG TABLET (FP) PO SCH (22:53)
[2018-04-17] MEDS: THIAMINE HCL 100 MG TABLET (FP) PO SCH (22:54)
[2018-04-18] MEDS: GABAPENTIN 300 MG CAPSULE (FP) PO SCH ×3 (05:44→22:29)
[2018-04-18] MEDS ORDERED: PT OWN MED DRAWER 7, Y5N ONE (08:47)
[2018-04-18] MEDS: PRENATAL VITAMINS W/ FOLIC ACID TABLET (FP) PO SCH (10:02)
[2018-04-18] MEDS: BACITRACIN 0.9 GM PACKET TP SCH (10:02)
[2018-04-18] MEDS: amLODIPine BESYLATE 2.5 MG TABLET (FP) PO SCH (10:02)
[2018-04-18] MEDS: SERTRALINE HCL 50 MG TABLET (FP) PO SCH (10:02)
[2018-04-18] MEDS: TOLNAFTATE 1% CREAM 15 GM TUBE TP SCH ×2 (10:04→22:31)
--- NOTE | 2018-04-18 13:02 | PN ---
[facility] Progress Note Note: PATIENT SCHEDULED FOR DISCHARGE 04/21/18. PATIENT REPORTS ACCOMPLISHING ALL REHAB GOALS AND SCHEDULED TO FOLLOW UP WITH [facility] UPON DISCHARGE. PATIENT ENCOURAGED TO FOLLOW UP WITH GROUP MEETINGS TO PREVENT RELAPSE. REQUESTED TO CONSULT WITH PSYCHIATRY PRIOR TO D/C TO DISCUSS INSOMNIA MEDICATION BELSOMRA. CONSULT ORDER PLACED. PATIENT RECOMMENDED TO FOLLOW UP WITH PCP WITHIN 72 HOURS OF DISCHARGE TO CONTINUE MEDICAL MANAGEMENT. PATIENT IS CLINICALLY STABLE AT THIS TIME AND DENIES SI/HI. MEDICAL PRESCRIPTIONS SENT TO PREFERRED PHARMACY. Vital Signs Temperature 97.9 F 04/18/18 07:03 Pulse Rate 80 04/18/18 09:12 Respiratory Rate 18 04/18/18 09:12 Blood Pressure 133/82 04/18/18 09:12 O2 Sat by Pulse Oximetry (%)
--- NOTE | 2018-04-18 16:57 | PN ---
Psychiatric Progress Note Vital Signs: Vital Signs Period Temp Pulse Resp BP Sys/Pagan Pulse Ox Last 24 Hr 97.9 F 77-80 18-18 120-133/81-82 Date of Session: 04/18/18 Chief Complaint:: Ernesto still anxious,shaking and having sleeping problems. HPI: Patient addressed Alcohol,Cocaine and Opioid dependence comorbid with Substance induced mood disorder. ROS: Significant for BA,HTN. Current Medications: Active Medications Generic Name Dose Route Start Last Admin Trade Name Freq PRN Reason Stop Dose Admin Acetaminophen 650 mg 04/07/18 15:18 Tylenol - PO Q4H PRN FEVER Al Hydroxide/Mg Hydroxide 30 ml 04/07/18 15:18 04/14/18 21:56 Mylanta Oral Suspension - PO 30 ml Q6H PRN Administration DYSPEPSIA Amlodipine Besylate 2.5 mg 04/14/18 10:00 04/18/18 10:02 Norvasc - PO 2.5 mg DAILY ALEXIS Administration Bacitracin 0.9 gm 04/11/18 10:00 04/18/18 10:02 Bacitracin - TP 0.9 gm DAILY ALEXIS Administration Clonidine 0.1 mg 04/16/18 14:47 04/18/18 12:59 Catapres - PO 0.1 mg BID PRN Administration ANXIETY Colloidal Oatmeal 1 applic 04/09/18 09:45 04/09/18 15:58 Aveeno Soap - TP 1 bar DAILY PRN Administration HYGEINE Eucalyptus/Menthol/Phenol/Sorbitol 1 each 04/07/18 15:18 Cepastat Lozenge - MM Q4H PRN SORE THROAT Gabapentin 300 mg 04/16/18 14:00 04/18/18 14:01 Neurontin - PO 300 mg TID ALEXIS Administration Guaifenesin 10 ml 04/07/18 15:18 Robitussin Dm - PO Q6H PRN COUGH Hydroxyzine Pamoate 50 mg 04/07/18 14:57 04/17/18 10:09 Vistaril - PO 50 mg Q4H PRN Administration ANXIETY Ibuprofen 400 mg 04/07/18 15:18 04/11/18 21:23 Motrin - PO 400 mg Q6H PRN Administration Pain Level 4-6 Loperamide HCl 4 mg 04/07/18 15:18 Imodium - PO Q6H PRN DIARRHEA Magnesium Citrate 300 ml 04/07/18 15:18 Citroma - PO Q48H PRN CONSTIPATION Magnesium Hydroxide 30 ml 04/07/18 15:18 Milk Of Magnesia - PO DAILY PRN CONSTIPATION Melatonin 10 mg 04/14/18 13:53 04/15/18 23:28 Melatonin PO 10 mg HS PRN Administration INSOMNIA Multivit/Folic Acid/Iron 1 tab 04/08/18 10:00 04/18/18 10:02 Vitamins (Sjr) - PO 1 tab DAILY ALEXIS Administration Pseudoephedrine/Triprolidine 1 combo 04/07/18 15:18 Actifed - PO TID PRN NASAL CONGESTION Sertraline HCl 100 mg 04/08/18 10:00 04/18/18 10:02 Zoloft - PO 100 mg DAILY ALEXIS Administration Simethicone 40 mg 04/14/18 13:53 Mylicon Liquid - PO QID PRN INDIGESTION Suvorexant 10 mg 04/16/18 22:00 04/17/18 22:53 Belsomra PO 04/23/18 21:59 10 mg HS ALEXIS Administration Thiamine HCl 100 mg 04/07/18 22:00 04/17/18 22:54 Vitamin B1 - PO 100 mg HS ALEXIS Administration Tolnaftate 1 applic 04/12/18 13:45 04/18/18 10:04 Tinactin 1% Cream - TP 1 applic BID ALEXIS Administration Trazodone HCl 150 mg 04/14/18 22:00 04/17/18 22:53 Desyrel - PO 150 mg HS ALEXIS Administration Current Side Effect: No Lab tests ordered: No Lab tests reviewed: Yes Provider note:: Chart was revuewed,patient was seen in my office to address ongoing sleeping difficulties and anxiety.Current medications has been discussed with the patient.Continue Neurontin 300 mg po tid,Trazodone 150 mg po hs,Zoloft 100 mg po daiy and Belsomra 10 mg po hs prn for insomnia.Coping skills utilizations and other mechanisms to reduce anxiety has been discussed with the patient. Supportive therapy provided. Mental Status Exam - Mental Status Exam Alert and Oriented to: Time, Place, Person Cognitive Function: Grossly Intact Patient Appearance: Unkempt Mood: Anxious Affect: Labile Patient Behavior: Cooperative Speech Pattern: Clear Voice Loudness: Normal Thought Process: Goal Oriented Thought Disorder: Not Present Hallucinations: Denies Suicidal Ideation: Denies Homicidal Ideation: Denies Insight/Judgement: Fair Sleep: Fair Appetite: Good Muscle strength/Tone: Normal Gait/Station: Normal Psychiatric Treatment Plan - Problem List (1) Alcohol dependence Qualifiers: Substance use status: uncomplicated Qualified Code(s): F10.20 - Alcohol dependence, uncomplicated (2) Asthma Qualifiers: Asthma severity: mild Asthma persistence: unspecified Asthma complication type: unspecified Qualified Code(s): J45.909 - Unspecified asthma , uncomplicated (3) Cocaine dependence Qualifiers: Substance use status: uncomplicated Qualified Code(s): F14.20 - Cocaine dependence, uncomplicated (4) Hypertension Qualifiers: Hypertension type: essential hypertension Qualified Code(s): I10 - Essential (primary) hypertension (5) Nicotine dependence in remission Qualifiers: Nicotine product type: cigarettes Qualified Code(s): F17.211 - Nicotine dependence, cigarettes, in remission (6) Opiate dependence Qualifiers: Substance use status: in remission Qualified Code(s): F11.21 - Opioid dependence, in remission
[2018-04-18] MEDS: THIAMINE HCL 100 MG TABLET (FP) PO SCH (22:29)
[2018-04-18] MEDS: SUVOREXANT 10 MG TABLET PO SCH (22:29)
[2018-04-18] MEDS: traZODone HCL 50 MG TABLET (FP) PO SCH (22:29)
[2018-04-19] MEDS: GABAPENTIN 300 MG CAPSULE (FP) PO SCH ×3 (06:36→22:54)
[2018-04-19] MEDS: amLODIPine BESYLATE 2.5 MG TABLET (FP) PO SCH (10:01)
[2018-04-19] MEDS: BACITRACIN 0.9 GM PACKET TP SCH (10:01)
[2018-04-19] MEDS: PRENATAL VITAMINS W/ FOLIC ACID TABLET (FP) PO SCH (10:02)
[2018-04-19] MEDS: SERTRALINE HCL 50 MG TABLET (FP) PO SCH (10:02)
[2018-04-19] MEDS: TOLNAFTATE 1% CREAM 15 GM TUBE TP SCH ×2 (10:03→22:55)
[2018-04-19] MEDS ORDERED: PT OWN MED DRAWER 7, Y5N ONE ×2 (10:15→13:09)
[2018-04-19] MEDS: hydrOXYzine PAMOATE 50 MG CAPSULE (FP) PO PRN (17:04)
[2018-04-19] MEDS: traZODone HCL 50 MG TABLET (FP) PO SCH (22:54)
[2018-04-19] MEDS: THIAMINE HCL 100 MG TABLET (FP) PO SCH (22:54)
[2018-04-19] MEDS: SUVOREXANT 10 MG TABLET PO SCH (22:54)
[2018-04-20] MEDS: GABAPENTIN 300 MG CAPSULE (FP) PO SCH ×3 (06:28→21:19)
[2018-04-20] MEDS: SERTRALINE HCL 50 MG TABLET (FP) PO SCH (09:25)
[2018-04-20] MEDS: amLODIPine BESYLATE 2.5 MG TABLET (FP) PO SCH (09:25)
[2018-04-20] MEDS: BACITRACIN 0.9 GM PACKET TP SCH (09:25)
[2018-04-20] MEDS: TOLNAFTATE 1% CREAM 15 GM TUBE TP SCH ×2 (09:25→21:20)
[2018-04-20] MEDS: PRENATAL VITAMINS W/ FOLIC ACID TABLET (FP) PO SCH (09:25)
[2018-04-20] MEDS: MAG HYDROX/AL HYDROX/SIMETH 30 ML UNIT-DOSE CUP PO PRN (09:57)
[2018-04-20] MEDS ORDERED: PT OWN MED DRAWER 7, Y5N ONE (13:27)
[2018-04-20] MEDS: THIAMINE HCL 100 MG TABLET (FP) PO SCH (21:19)
[2018-04-20] MEDS: SUVOREXANT 10 MG TABLET PO SCH (21:19)
[2018-04-20] MEDS: traZODone HCL 50 MG TABLET (FP) PO SCH (21:19)
[2018-04-21] MEDS: MELATONIN 5 MG TABLETS PO PRN (01:00)
[2018-04-21] MEDS: hydrOXYzine PAMOATE 50 MG CAPSULE (FP) PO PRN ×2 (01:00→09:12)
[2018-04-21] MEDS: GABAPENTIN 300 MG CAPSULE (FP) PO SCH (06:21)
[2018-04-21 07:11] VITALS: BP 156/92; PULSE 70; TEMP 97.4
[2018-04-21] MEDS: PRENATAL VITAMINS W/ FOLIC ACID TABLET (FP) PO SCH (09:12)
[2018-04-21] MEDS: SERTRALINE HCL 50 MG TABLET (FP) PO SCH (09:12)
[2018-04-21] MEDS: BACITRACIN 0.9 GM PACKET TP SCH (09:13)
[2018-04-21] MEDS: amLODIPine BESYLATE 2.5 MG TABLET (FP) PO SCH (09:13)
[2018-04-21] MEDS: TOLNAFTATE 1% CREAM 15 GM TUBE TP SCH (09:13)
--- NOTE | 2018-04-21 14:47 | PN ---
[facility] Progress Note Note: PT COMPLETED REHAB AND DISCHARGED TODAY. PT WAS REFERRED TO [facility] FOR CD AFTERCARE TREATMENT. PT REPORTS SHE HAS PRIMARY CARE AT [facility]. Vital Signs - 24 hr 04/21/18 04/21/18 03:30 07:08 Temperature 97.4 F L Pulse Rate 70 Respiratory 18 18 Rate Blood Pressure 156/92 Laboratory Tests 04/08/18 04/09/18 16:21 12:20 Potassium 4.0 Urine Color Ltyellow Urine Appearance Slcloudy Urine pH 7.[address] [place] 1.014 Urine Protein Negative Urine Glucose (UA) Negative Urine Ketones Negative Urine Blood Negative Urine Nitrite Negative Urine Bilirubin Negative Urine Urobilinogen Negative Ur Leukocyte Esterase Trace Urine WBC (Auto) 4 Urine RBC (Auto) <1 Ur Epithelial Cells Rare NAD MEDICALLY STABLE PLAN:FOLLOW UP AT [facility] FOR CD AFTERCARE TREATMENT. FOLLOW UP AT [facility].
== END 2018-04-21 09:20 | disposition home or self-care (01) | DRG 772 ==
LOC: YASAS 12:50 → Y3E 12:51
PROVIDERS: ADMIT Psychiatry & Neurology Psychiatry; ATTEND Psychiatry & Neurology Psychiatry
PROC: HZ42ZZZ Group Counseling for Substance Abuse Treatment, Cognitive-Behavioral (ICD-10-PCS; principal; 2018-04-07)
PROC: 8E09XY8 Suture Removal from Head and Neck Region (ICD-10-PCS; 2018-04-09)
DX: F11.20 Opioid dependence, uncomplicated (principal); F10.20 Alcohol dependence, uncomplicated; F14.20 Cocaine dependence, uncomplicated; F17.211 Nicotine dependence, cigarettes, in remission; F19.24 Other psychoactive substance dependence with psychoactive substance-induced mood disorder; F41.9 Anxiety disorder, unspecified; I10 Essential (primary) hypertension; J45.909 Unspecified asthma, uncomplicated; G47.00 Insomnia, unspecified; B35.3 Tinea pedis; K30 Functional dyspepsia; E87.6 Hypokalemia; Z48.02 Encounter for removal of sutures
CPT/HCPCS: 36415; 81003; 81015; 84132; 90732; G0009; J0735